=== PATIENT | male | born 1985 | race American Indian/Alaskan Native ===

== ENCOUNTER 2016-11-22 00:54 | Emergency (ER) | payer SELFPAY ==
[2016-11-22] MEDS ORDERED: TORADOL IM ONE (05:47)
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
[2016-11-22 06:13] VITALS: BP 110/65
== END 2016-11-22 06:11 | disposition home or self-care (01) ==
LOC: ED 00:54
DX: M54.5 Low back pain (principal); F12.90 Cannabis use, unspecified, uncomplicated; Z72.0 Tobacco use; V89.2XXA Person injured in unspecified motor-vehicle accident, traffic, initial encounter; Y93.89 Activity, other specified; Y99.9 Unspecified external cause status; Y92.410 Unspecified street and highway as the place of occurrence of the external cause
CPT/HCPCS: 96372; 99282; J1885

== ENCOUNTER 2018-12-21 06:55 | Emergency (ER) | payer OTHER ==
[2018-12-21 07:11] VITALS: BP 121/74
[2018-12-21] MEDS ORDERED: IBUPROFEN PO ONE (07:41)
--- NOTE | 2018-12-21 07:47 | Emergency Department Report ---
ED ENT HPI - General Chief complaint: Dental/Oral Stated complaint: TOOTHACHE Time Seen by Provider: 12/21/18 07:21 Source: patient Mode of arrival: Ambulatory Limitations: No Limitations - History of Present Illness Initial comments: Pt is a 31 yo male who presents to the ED with c/o left upper dental pain that began two days ago. He states that he needs three teeth extractions. he states that he was on amoxicillin and ibuprofen a couple of months ago but did not have the tooth extraction at that time due to issues with insurance. he denies any fever, vomiting, facial edema. PMHx of nephrolithiasis. no allergies to meds. - Related Data Previous Rx's Medication Instructions Recorded Last Taken Type Cyclobenzaprine [Flexeril] 10 mg PO QHS PRN #20 tablet 11/22/16 Unknown Rx Naproxen [Naprosyn] 500 mg PO BID #40 tablet 11/22/16 Unknown Rx Acetaminophen/Codeine [Tylenol 1 tab PO Q6H PRN #7 tab 12/21/18 Unknown Rx /Codeine # 3 tab] Ibuprofen [Motrin 800 MG tab] 800 mg PO Q8HR PRN #14 tablet 12/21/18 Unknown Rx Penicillin Vk [Veetids TAB] 500 mg PO QID 7 Days #56 tablet 12/21/18 Unknown Rx Allergies Allergy/AdvReac Type Severity Reaction Status Date / Time No Known Allergies Allergy Verified 12/21/18 07:01 ED Dental HPI - General Chief complaint: Dental/Oral Stated complaint: TOOTHACHE Time Seen by Provider: 12/21/18 07:21 Source: patient Mode of arrival: Ambulatory Limitations: No Limitations - Related Data Previous Rx's Medication Instructions Recorded Last Taken Type Cyclobenzaprine [Flexeril] 10 mg PO QHS PRN #20 tablet 11/22/16 Unknown Rx Naproxen [Naprosyn] 500 mg PO BID #40 tablet 11/22/16 Unknown Rx Acetaminophen/Codeine [Tylenol 1 tab PO Q6H PRN #7 tab 12/21/18 Unknown Rx /Codeine # 3 tab] Ibuprofen [Motrin 800 MG tab] 800 mg PO Q8HR PRN #14 tablet 12/21/18 Unknown Rx Penicillin Vk [Veetids TAB] 500 mg PO QID 7 Days #56 tablet 12/21/18 Unknown Rx Allergies Allergy/AdvReac Type Severity Reaction Status Date / Time No Known Allergies Allergy Verified 12/21/18 07:01 ED Review of Systems ROS: Stated complaint: TOOTHACHE Other details as noted in HPI Comment: All other systems reviewed and negative ED Past Medical Hx - Past Medical History Hx Kidney Stones: Yes - Surgical History Additional Surgical History: wrist surgery - Social History Smoking Status: Current Every Day Smoker Substance Use Type: Alcohol, Marijuana - Medications Home Medications: Home Medications Medication Instructions Recorded Confirmed Last Taken Type Cyclobenzaprine [Flexeril] 10 mg PO QHS PRN #20 tablet 11/22/16 Unknown Rx Naproxen [Naprosyn] 500 mg PO BID #40 tablet 11/22/16 Unknown Rx Acetaminophen/Codeine [Tylenol 1 tab PO Q6H PRN #7 tab 12/21/18 Unknown Rx /Codeine # 3 tab] Ibuprofen [Motrin 800 MG tab] 800 mg PO Q8HR PRN #14 tablet 12/21/18 Unknown Rx Penicillin Vk [Veetids TAB] 500 mg PO QID 7 Days #56 tablet 12/21/18 Unknown Rx ED Physical Exam - General Limitations: No Limitations General appearance: alert, in no apparent distress - Head Head exam: Present: atraumatic, normocephalic - Eye Eye exam: Present: normal appearance - ENT ENT exam: Present: mucous membranes moist, other (last tooth on the left upper side with partially cracked tooth in half, no induration, no erythema, no flucutance, uvula is midline, no facial edema, no angioedema ) - Respiratory Respiratory exam: Present: normal lung sounds bilaterally. Absent: respiratory distress, wheezes, rales, rhonchi, stridor, chest wall tenderness, accessory muscle use, decreased breath sounds, prolonged expiratory - Cardiovascular Cardiovascular Exam: Present: regular rate, normal rhythm, normal heart sounds. Absent: systolic murmur, diastolic murmur, rubs, gallop - Neurological Exam Neurological exam: Present: alert, oriented X3 - Psychiatric Psychiatric exam: Present: normal affect, normal mood - Skin Skin exam: Present: warm, dry, intact ED Course Vital Signs 12/21/18 12/21/18 07:04 07:45 Temperature 99.6 F Pulse Rate 62 Respiratory 18 16 Rate Blood Pressure 121/74 O2 Sat by Pulse 99 Oximetry ED Medical Decision Making - Medical Decision Making Pt is a 31 yo male who presents to the ED with c/o left upper dental pain that began two days ago. He states that he needs three teeth extractions. he states that he was on amoxicillin and ibuprofen a couple of months ago but did not have the tooth extraction at that time due to issues with insurance. he denies any fever, vomiting, facial edema. PMHx of nephrolithiasis. no allergies to meds. vitals are normal. on exam: last tooth on the left upper side with partially cracked tooth in half, no induration, no erythema, no flucutance, uvula is midline, no facial edema, no angioedema. no signs of dental abscess on examination. pt given anti-inflammatory, pain med, and abx. take all medication as prescribed. do not drive or operate heavy machinery while taking pain medicine. discussed with pt the importance of following up with a dentist for a permanent solution. return to the emergency room for any new or worsening symptoms. Critical care attestation.: If time is entered above; I have spent that time in minutes in the direct care of this critically ill patient, excluding procedure time. ED Disposition Clinical Impression: Cracked tooth, Dental caries Disposition: TO HOME OR SELFCARE Is pt being admited?: No Does the pt Need Aspirin: No Condition: Stable Instructions: Dental Caries (ED) Additional Instructions: Please take all medication as prescribed. do not drive or operate heavy machinery while taking pain medication. it is very important that you follow up with a dentist in the next 2-3 days. return to the emergency room for any new or worsening symptoms. Prescriptions: Ibuprofen [Motrin 800 MG tab] 800 mg PO Q8HR PRN #14 tablet PRN Reason: Pain, Moderate (4-6) Acetaminophen/Codeine [Tylenol /Codeine # 3 tab] 1 tab PO Q6H PRN #7 tab PRN Reason: Pain , Severe (7-10) Penicillin Vk [Veetids TAB] 500 mg PO QID 7 Days #56 tablet Referrals: AMY MCMANUS MD [Primary Care Provider] - 2-[address] [facility] [Outside] - 2-3 Days Time of Disposition: 07:46 Print Language: ROMANSH
== END 2018-12-21 08:11 | disposition home or self-care (01) ==
LOC: ED 06:55
DX: K02.9 Dental caries, unspecified (principal); K03.81 Cracked tooth; F17.200 Nicotine dependence, unspecified, uncomplicated; F12.90 Cannabis use, unspecified, uncomplicated; Z79.899 Other long term (current) drug therapy
CPT/HCPCS: 99282